=== PATIENT | male | born 1990 | race American Indian/Alaskan Native ===

== ENCOUNTER → 2018-12-13 14:37 | Outpatient (CLI) | payer OTHER, MEDICAID, SELFPAY ==
--- NOTE | 2018-12-13 | DI.RAD.S_ITS ---
PROCEDURE: XR FOOT LT MIN 3V INDICATIONS: LEFT FOOT PAIN TECHNIQUE: 3 views of the foot were acquired. COMPARISON: None. FINDINGS: Bones: No fractures or dislocations. No suspicious bony lesions. Soft tissues: No tibiotalar joint effusion. Achilles tendon appears normal. IMPRESSION: Normal foot plain films. Dictated by: Neto Puente M.D. on 12/13/2018 at 15:22 Approved by: Neto Puente M.D. on 12/13/2018 at 15:22
== END ==
PROVIDERS: Visit Provider Family Medicine
DX: M79.672 Pain in left foot (principal)
CPT/HCPCS: 73630